=== PATIENT | male | born 1955 | race Hispanic/Latino ===

== ENCOUNTER 2018-11-20 14:07 | Emergency (ER) | payer SELFPAY ==
[2018-11-20] MEDS ORDERED: Sodium Chloride 0.9% 1,000 ML ONE ×2 (14:34→14:55)
[2018-11-20] MEDS ORDERED: Ondansetron PF 4 MG/2 ML Vial ONE (14:34)
[2018-11-20] MEDS ORDERED: Morphine 4 MG/ML VIAL ONE (14:34)
[2018-11-20 14:49] LABS: Base Excess-Venous -6.8 mmol/L (-2.0 to 3.0); Bicarbonate (HCO3v) 17.8 mmol/L (22.0-28.0); CO2 Tension (PvCO2) 32.4 mmHg (40.0-50.0); O2 Tension (PvO2) 133.8 mmHg (35.0-45.0); pH (Venous) 7.349 (7.320-7.430)
[2018-11-20 14:50] LABS: Calcium, Ionized 1.11 mmol/L (See Comments:); vO2 Saturation-calc 98.9 % (60.0-85.0)
[2018-11-20] MEDS ORDERED: Sodium Chloride 0.9% 100 ML ONE (14:55)
[2018-11-20] MEDS ORDERED: Acetaminophen 325 MG TAB ONE (14:55)
[2018-11-20] MEDS ORDERED: Piperacillin/Tazobactam 4.5 GM VIAL ONE (14:55)
[2018-11-20 14:58] LABS: ALT (SGPT) 34 U/L (8-55); AST (SGOT) 65 U/L (5-34); Albumin 2.6 g/dL (3.4-4.8); Alkaline Phosphatase 272 U/L (40-150); Anion Gap 17 mmol/L (10-20); BUN (Urea Nitrogen) 30 mg/dL (8.4-25.7); Bilirubin, Total 4.4 mg/dL (0.2-1.2); Calc. Creatinine Clearance 0 mL/min (70-130); Calcium 9.1 mg/dL (7.8-10.44); Carbon Dioxide 18 mmol/L (23-31); Chloride 92 mmol/L (98-107); Estimated GFR-MDRD 56; Globulin 5.5 g/dL (2.4-3.5); Glucose 538 mg/dL (80-115); Protein, Total 8.1 g/dL (5.8-8.1); Sodium 123 mmol/L (136-145)
[2018-11-20 14:59] LABS: Band 9 % (5-11); Hemoglobin 10.9 g/dL (14.0-18.0); Lymphocytes 4 % (21-51); MDiff Complete? YES; Macrocytosis SLIGHT = 6-15 cells (100X) (0-5/hpf); Mean Corpuscular HGB CONC 31.8 g/dL (32.0-36.0); Mean Corpuscular Hemoglobin 34.6 pg (27.0-31.0); Mean Platelet Volume 7.6 fL (7.4-10.4); Monocytes 5 % (0-10); Myelocyte 1 % (0-0); Neutrophil 81 % (42-75); Platelet Count 149 thou/uL (130-400); RBC Distribution Width 14.2 % (11.5-14.5); Red Blood Cell (RBC) Count 3.14 mill/uL (4.70-6.10); White Blood Cell (WBC) Count 26.6 thou/uL (4.8-10.8)
[2018-11-20 15:02] LABS: Bilirubin Small (Negative); Blood, Urine Trace (Negative); Glucose, Urine (Dipstick) >=1000 mg/dL (Negative); Leukocyte Negative (Negative); Nitrite Negative (Negative); Protein, Urine (Dipstick) 30 mg/dL (Neg-Trace); Urobilinogen > or = 8.0 mg/dL (0.2-1.0); pH, Urine 5.5 (5.0-9.0)
[2018-11-20] MEDS ORDERED: Clindamycin/D5W 900 mg/50 ml Premix Bag ONE (15:14)
[2018-11-20 15:16] LABS: Clarity SL HAZY (Clear)
--- NOTE | 2018-11-20 15:19 | RAD ---
F3 views left foot: 11/20/2018 COMPARISON: None HISTORY: Stepped on a staple 2 weeks ago, pain and redness of the left foot FINDINGS: There is a suggestion of dorsal and plantar soft tissue swelling in the region of the midfo ot. There is arterial calcification involving the foot and ankle. There is moderate degenerative lakhani ge of the midfoot with dorsal midfoot osteophyte formation and navicular volume loss. No acute fractu re or evidence of dislocation. No radiopaque foreign body or subcutaneous gas. IMPRESSION: Soft tissue swelling, which may be on the basis of cellulitis. No acute fracture or dislo cation.
[2018-11-20 15:26] LABS: RBC/HPF None Seen HPF (0-3); Specific Gravity, Urine 1.027 (1.002-1.036); Squamous Epithelial 0-3 HPF (0-3); WBC/HPF 0-3 HPF (0-3)
[2018-11-20 15:27] LABS: Bacteria/HPF Rare-Few HPF (None Seen)
== END 2018-11-20 15:39 | disposition short-term general hospital (02) ==
LOC: NAV ERS 14:07
DX: A41.9 Sepsis, unspecified organism (principal); R65.20 Severe sepsis without septic shock; E87.1 Hypo-osmolality and hyponatremia; L03.116 Cellulitis of left lower limb; E11.65 Type 2 diabetes mellitus with hyperglycemia; F17.210 Nicotine dependence, cigarettes, uncomplicated
CPT/HCPCS: 36416; 80053; 81003; 81015; 82330; 82803; 83605; 85025; 87040; 96361; 96365; 96375; J2270; J2405; J2543; J3490; J7050

== ENCOUNTER 2019-07-17 23:15 | Emergency (ER) | payer OTHER, SELFPAY ==
[2019-07-17] MEDS ORDERED: Sodium Chloride 0.9% 1,000 ML ONE (23:47)
[2019-07-18] MEDS ORDERED: Aspirin Chewable 81 MG TAB ONE (00:04)
--- NOTE | 2019-07-18 00:05 | RAD ---
XR Chest 1 View Portable History: Weakness Comparison: Chest radiograph 2011 Findings: Likely a skin fold along the right lateral hemithorax much less likely a pneumothorax as th ere are felt to be pulmonary markings peripheral to this line. Heart size is enlarged. Small effusions. Impression: 1. Cardiomegaly with small pleural effusions. 2. Likely a prominent skin fold right upper lateral hemithorax. Follow-up 2 views of the chest recomm ended.
[2019-07-18 00:12] LABS: ALT (SGPT) 35 U/L (8-55); AST (SGOT) 70 U/L (5-34); Albumin 2.6 g/dL (3.4-4.8); Alkaline Phosphatase 167 U/L (40-110); Anion Gap 22 mmol/L (10-20); BUN (Urea Nitrogen) 111 mg/dL (8.4-25.7); Bilirubin, Total 3.4 mg/dL (0.2-1.2); CK (CPK) 35 U/L (30-200); Calc. Creatinine Clearance 0 mL/min (70-130); Calcium 8.9 mg/dL (7.8-10.44); Carbon Dioxide 14 mmol/L (23-31); Chloride 84 mmol/L (98-107); Estimated GFR-MDRD 21; Globulin 5.7 g/dL (2.4-3.5); Lipase 30 U/L (8-78); Potassium 5.5 mmol/L (3.5-5.1); Protein, Total 8.3 g/dL (5.8-8.1)
[2019-07-18] MEDS ORDERED: Insulin Regular 300 UNITS/3 ML VIAL ONE (00:15)
[2019-07-18 00:18] LABS: Glucose 642 mg/dL (80-115); Sodium 114 mmol/L (136-145)
[2019-07-18 00:21] LABS: Band 7 % (5-11); Hemoglobin 12.1 g/dL (14.0-18.0); Lymphocytes 8 % (21-51); MDiff Complete? YES; Mean Corpuscular Hemoglobin 32.6 pg (27.0-31.0); Mean Corpuscular Volume 98.5 fL (78.0-98.0); Mean Platelet Volume 7.3 fL (7.4-10.4); Monocytes 6 % (0-10); Neutrophil 79 % (42-75); Platelet Count 212 thou/uL (130-400); Platelet Morphology Comment Appears Adequate; RBC Distribution Width 13.8 % (11.5-14.5); RBC Morphology Normal; Red Blood Cell (RBC) Count 3.72 mill/uL (4.70-6.10)
[2019-07-18] MEDS ORDERED: Sodium Chloride 0.9% 1,000 ML ONE (00:21)
[2019-07-18] MEDS ORDERED: DOPamine 400 MG/D5W 250 ML 250 ML ONE (00:25)
[2019-07-18 00:33] LABS: Base Excess-Venous -8.5 mmol/L (-2.0 to 3.0); Bicarbonate (HCO3v) 15.8 mmol/L (22.0-28.0); CO2 Tension (PvCO2) 28.9 mmHg (40.0-50.0); Calcium, Ionized 1.06 mmol/L (See Comments:); Chloride 87 mmol/L (98-107); Hemoglobin - Calc 13.5 g/dL (14.0-18.0); Potassium 5.3 mmol/L (3.5-5.1); Sodium 116 mmol/L (138-145); T. Carbon Dioxide 16.7 mmol/L (22.0-28.0); vO2 Saturation-calc 72.9 % (60.0-85.0)
[2019-07-18] MEDS ORDERED: Norepinephrine 4 MG/4 ML VIAL ONE ×2 (00:41→00:49)
[2019-07-18 00:43] LABS: CKMB 1.3 ng/mL (0-6.6)
[2019-07-18] MEDS ORDERED: Sodium Chloride 0.9% 250 ML 250 ML ONE (00:49)
[2019-07-18] MEDS ORDERED: Heparin 5,000 UNITS/ML VIAL ONE (02:12)
[2019-07-18] MEDS ORDERED: Heparin 10,000 UNITS/1 ML VIAL ONE (02:13)
== END 2019-07-18 00:58 | disposition short-term general hospital (02) ==
LOC: NAV ERS 23:15
DX: A41.9 Sepsis, unspecified organism (principal); R65.20 Severe sepsis without septic shock; N17.9 Acute kidney failure, unspecified; I21.9 Acute myocardial infarction, unspecified; E11.65 Type 2 diabetes mellitus with hyperglycemia; E87.5 Hyperkalemia; E87.2 Acidosis; F17.210 Nicotine dependence, cigarettes, uncomplicated
CPT/HCPCS: 36415; 36416; 71045; 80053; 82010; 82330; 82550; 82553; 82803; 83605; 83690; 83880; 84484; 85025; 87040; 87077; 87149; 87186; 87804; 93005; 94760; 96365; 96375; J1265; J1644; J1815; J7050

== ENCOUNTER 2020-11-18 13:58 | Emergency (ER) | payer MEDICARE, SELFPAY ==
[2020-11-18] MEDS ORDERED: Clindamycin/D5W 900 mg/50 ml Premix Bag ONE (14:57)
[2020-11-18] MEDS ORDERED: Sodium Chloride 0.9% 1,000 ML ONE ×3 (14:57→16:39)
[2020-11-18] MEDS ORDERED: Sodium Chloride 0.9% 100 ML ONE (14:57)
[2020-11-18] MEDS ORDERED: Cefepime 2 GM VIAL ONE (14:57)
[2020-11-18 15:00] LABS: ALT (SGPT) 24 U/L (8-55); AST (SGOT) 45 U/L (5-34); Albumin 2.5 g/dL (3.4-4.8); Alkaline Phosphatase 177 U/L (40-110); Anion Gap 20 mmol/L (10-20); BUN (Urea Nitrogen) 103 mg/dL (8.4-25.7); Bilirubin, Total 5.8 mg/dL (0.2-1.2); Calc. Creatinine Clearance 0 mL/min (70-130); Calcium 8.7 mg/dL (7.8-10.44); Carbon Dioxide 16 mmol/L (23-31); Chloride 95 mmol/L (98-107); Globulin 4.8 g/dL (2.4-3.5); Glucose 174 mg/dL (80-115); Potassium 4.3 mmol/L (3.5-5.1); Protein, Total 7.3 g/dL (5.8-8.1); Sodium 127 mmol/L (136-145)
[2020-11-18 15:02] LABS: Band 11 % (5-11); Eosinophils 1 % (0-10); Hemoglobin 10.8 g/dL (14.0-18.0); Lymphocytes 6 % (21-51); MDiff Complete? YES; Mean Corpuscular HGB CONC 34.3 g/dL (32.0-36.0); Mean Corpuscular Hemoglobin 32.9 pg (27.0-31.0); Mean Platelet Volume 7.8 fL (7.4-10.4); Monocytes 1 % (0-10); Myelocyte 1 % (0-0); Neutrophil 80 % (42-75); Platelet Count 62 thou/uL (130-400); Platelet Morphology Comment Appears Decreased; RBC Distribution Width 14.9 % (11.5-14.5); Red Blood Cell (RBC) Count 3.28 mill/uL (4.70-6.10); White Blood Cell (WBC) Count 28.5 thou/uL (4.8-10.8)
[2020-11-18 15:18] LABS: CKMB 1.6 ng/mL (0-6.6)
[2020-11-18] MEDS ORDERED: DOPamine 400 MG/D5W 250 ML 250 ML ONE (15:29)
[2020-11-18 15:34] LABS: INR-International Normal Ratio 1.5; PTT 33.5 sec (22.9-36.1); Prothrombin Time 18.8 sec (12.0-14.7)
[2020-11-18 15:46] LABS: Base Excess-Venous -9.5 mmol/L (-2.0 to 3.0); Bicarbonate (HCO3v) 15.1 mmol/L (22.0-28.0); CO2 Tension (PvCO2) 27.7 mmHg (42.0-51.0); Chloride 103 mmol/L (98-107); Hemoglobin - Calc 9.5 g/dL (14.0-18.0); Sodium 131 mmol/L (138-145); T. Carbon Dioxide 15.9 mmol/L (22.0-28.0); vO2 Saturation-calc 88.9 % (60.0-85.0)
== END 2020-11-18 16:43 | disposition short-term general hospital (02) ==
LOC: NAV ERS 13:58
DX: A41.9 Sepsis, unspecified organism (principal); R65.20 Severe sepsis without septic shock; L03.113 Cellulitis of right upper limb; E11.9 Type 2 diabetes mellitus without complications; I10 Essential (primary) hypertension; Z79.899 Other long term (current) drug therapy
CPT/HCPCS: 36556; 71045; 80053; 82330; 82553; 82803; 83605; 84484; 85025; 85610; 85730; 87040; 93005; 96365; J0692; J1265; J3490; J7050